=== PATIENT | male | born 1975 | race Two or more races ===

== ENCOUNTER 2019-04-09 10:10 | Emergency (ER) | payer MEDICAID ==
[~2019-04-09] VITALS: Ht 177.8 cm; Wt 104.5 kg
[2019-04-09 11:01] LABS: BASOPHILS % (AUTO) 0.9 % (0.0-2.0); EOSINOPHILS % (AUTO) 1.5 % (1.0-6.0); HEMOGLOBIN 13.6 g/dL (13.5-17.5); LYMPHOCYTES # (AUTO) 2.2 K/uL (1.0-4.8); MEAN CORPUSCULAR HEMOGLOBIN 28.1 pg (26.0-34.0); MEAN CORPUSCULAR HGB CONC 32.4 G/dL (31.0-37.0); MEAN CORPUSCULAR VOLUME 87 fL (80-100); MONOCYTES # (AUTO) 0.8 K/uL (0.1-1.0); MONOCYTES % (AUTO) 10.9 % (2.0-9.0); NEUTROPHILS # (AUTO) 4.2 K/uL (1.8-7.7); NEUTROPHILS % (AUTO) 56.7 % (40.0-70.0); PLATELET COUNT (AUTO) 180 K/uL (150-450); RED BLOOD CELL COUNT(AUTO) 4.84 MIL/uL (4.50-5.90); RED CELL DISTRIBUTION WIDTH 24.7 % (11.5-14.5)
[2019-04-09 11:12] LABS: ANION GAP 9 mmol/L (8-16); CALCIUM, TOTAL 7.9 mg/dL (8.8-10.5); CARBON DIOXIDE 28 mmol/L (22-29); CHLORIDE 106 mmol/L (98-107); CREATININE 0.82 mg/dL (0.60-1.30); GLOMERULAR FILTR. RATE CALC > 60 mL/min (>60); GLUCOSE,RANDOM 116 mg/dL (70-110); POTASSIUM 3.5 mmol/L (3.5-5.1); SODIUM SERUM 143 mmol/L (136-145); UREA NITROGEN, BLOOD 3 mg/dL (7-18)
[2019-04-09 11:18] LABS: ALANINE AMINOTRANSFERASE 48 U/L (12-78); ALBUMIN 3.2 g/dL (3.4-5.0); ALKALINE PHOSPHATASE 186 U/L (46-116); ASPARTATE AMINOTRANSFERASE 101 U/L (15-37); BILIRUBIN,TOTAL 1.3 mg/dL (0.1-1.0); LIPASE 147 U/L (73-393); TOTAL PROTEIN, SERUM 8.4 g/dL (6.4-8.2)
[2019-04-09 11:47] LABS: APPEARANCE,URINE CLEAR (CLEAR); BILIRUBIN,URINE NEGATIVE (NEGATIVE); GLUCOSE, URINE (UA) NEGATIVE (NEGATIVE); KETONES,URINE NEGATIVE (NEGATIVE); LEUKOCYTE ESTERASE ,URINE NEGATIVE (NEGATIVE); NITRATE,URINE NEGATIVE (NEGATIVE); OCCULT BLOOD,URINE NEGATIVE (NEGATIVE); PROTEIN,URINE NEGATIVE (NEGATIVE)
[2019-04-09 11:59] LABS: AMPHET/METH SCREEN,URINE NEGATIVE (NEGATIVE); BARBITURATE SCREEN, URINE NEGATIVE (NEGATIVE); BENZODIAZEPINES SCREEN,URINE NEGATIVE (NEGATIVE); CANNABINOID SCREEN,URINE POSITIVE (NEGATIVE); COCAINE SCREEN,URINE NEGATIVE (NEGATIVE); METHADONE SCREEN, URINE NEGATIVE (NEGATIVE); OPIATE SCREEN,URINE NEGATIVE (NEGATIVE); PHENCYCLIDINE SCREEN,URINE NEGATIVE (NEGATIVE)
[2019-04-09 12:26] VITALS: BP 132/83
== END 2019-04-09 12:40 | disposition home or self-care (01) ==
LOC: EMS 10:12
DX: F10.20 Alcohol dependence, uncomplicated (principal); F17.210 Nicotine dependence, cigarettes, uncomplicated; R53.81 Other malaise; K21.9 Gastro-esophageal reflux disease without esophagitis; F12.90 Cannabis use, unspecified, uncomplicated
CPT/HCPCS: 99406

== ENCOUNTER 2019-04-12 23:38 | Inpatient (IN) | payer MEDICAID ==
[~2019-04-12] VITALS: Ht 177.8 cm; Wt 100.0 kg
[2019-04-13] VITALS (7 sets, daily range): BP systolic 118–147; BP diastolic 55–80
[2019-04-13 00:20] LABS: BASOPHILS % (AUTO) 0.5 % (0.0-2.0); EOSINOPHILS % (AUTO) 1.3 % (1.0-6.0); HEMATOCRIT 39.5 % (41-53); HEMOGLOBIN 13.1 g/dL (13.5-17.5); LYMPHOCYTES % (AUTO) 27.6 % (22.0-44.0); MEAN CORPUSCULAR HEMOGLOBIN 28.6 pg (26.0-34.0); MEAN CORPUSCULAR VOLUME 87 fL (80-100); MONOCYTES # (AUTO) 1.2 K/uL (0.1-1.0); MONOCYTES % (AUTO) 10.8 % (2.0-9.0); NEUTROPHILS # (AUTO) 6.4 K/uL (1.8-7.7); NEUTROPHILS % (AUTO) 59.8 % (40.0-70.0); PLATELET COUNT (AUTO) 129 K/uL (150-450); RED BLOOD CELL COUNT(AUTO) 4.57 MIL/uL (4.50-5.90); RED CELL DISTRIBUTION WIDTH 23.1 % (11.5-14.5)
[2019-04-13 00:29] LABS: ANION GAP 9 mmol/L (8-16); CALCIUM, TOTAL 8.3 mg/dL (8.8-10.5); CARBON DIOXIDE 28 mmol/L (22-29); CHLORIDE 102 mmol/L (98-107); GLOMERULAR FILTR. RATE CALC > 60 mL/min (>60); GLUCOSE,RANDOM 133 mg/dL (70-110); POTASSIUM 3.1 mmol/L (3.5-5.1); SODIUM SERUM 139 mmol/L (136-145); UREA NITROGEN, BLOOD 3 mg/dL (7-18)
[2019-04-13 00:33] LABS: INR 1.4 (0.9-1.1); PROTHROMBIN TIME 14.4 SEC (9.4-11.6)
[2019-04-13 00:34] LABS: ALANINE AMINOTRANSFERASE 43 U/L (12-78); ALBUMIN 3.1 g/dL (3.4-5.0); ALKALINE PHOSPHATASE 241 U/L (46-116); ASPARTATE AMINOTRANSFERASE 93 U/L (15-37); BILIRUBIN,TOTAL 1.5 mg/dL (0.1-1.0); LIPASE 200 U/L (73-393); TOTAL PROTEIN, SERUM 8.3 g/dL (6.4-8.2)
[2019-04-13] MEDS ORDERED: LORazepam 2 MG/ML VIAL IVP ONE (01:15)
[2019-04-13] MEDS ORDERED: POTASSIUM CHL 10 MEQ/WATER 50 ML IV ONE (01:15)
[2019-04-13] MEDS: PANTOPRAZOLE SODIUM 80 MG in SODIUM CHLORIDE 0.9% 100 ML IV SCH ×4 (01:15→22:04)
[2019-04-13] MEDS ORDERED: MAGNESIUM SULFATE 2 GM, MVI, ADULT NO.1 WITH VIT K 10 ML, THIAMINE HCL 100 MG, FOLIC AC... IV ONE ×5 (01:15)
[2019-04-13] MEDS ORDERED: PANTOPRAZOLE SODIUM 40 MG/VIAL IVP ONE (01:15)
[2019-04-13 01:33] LABS: APPEARANCE,URINE CLEAR (CLEAR); BILIRUBIN,URINE NEGATIVE (NEGATIVE); GLUCOSE, URINE (UA) NEGATIVE (NEGATIVE); KETONES,URINE NEGATIVE (NEGATIVE); LEUKOCYTE ESTERASE ,URINE NEGATIVE (NEGATIVE); NITRATE,URINE NEGATIVE (NEGATIVE); OCCULT BLOOD,URINE NEGATIVE (NEGATIVE); PH,URINE 6.5 (5.0-8.0); PROTEIN,URINE NEGATIVE (NEGATIVE)
[2019-04-13 01:33] LABS: % IRON SATURATION 42.8 % (30-44); IRON, SERUM 164 mcg/dL (50-175); TOTAL IRON BINDING CAPACITY 383 mcg/dL (250-450)
[2019-04-13] MEDS ORDERED: ONDANSETRON HCL 4 MG/2 ML VIAL IVP PRN ×2 (01:45→13:00)
[2019-04-13] MEDS ORDERED: SODIUM CHLORIDE 0.9% 1,000 ML IV ONE (01:45)
[2019-04-13] MEDS ORDERED: ONDANSETRON HCL 4 MG/2 ML VIAL IVP ONE (01:45)
[2019-04-13] MEDS ORDERED: 0.9% SODIUM CHLORIDE 10 ML SYRINGE IVP PRN (01:45)
[2019-04-13] MEDS ORDERED: HYDROmorphone 2 MG/ML SYRINGE IVP ONE (02:00)
[2019-04-13] MEDS ORDERED: INFLUENZA VIRUS VACCINE QVS 2019-20 (3YR+)/PF 60 MCG/0.5 ML SYRINGE IM ONE (05:15)
[2019-04-13] MEDS ORDERED: PNEUMOCOCCAL VACCINE POLYVALENT 0.5 ML VIAL [PPSV23] IM ONE (05:15)
[2019-04-13 08:03] LABS: HEMATOCRIT 33.4 % (41-53); HEMOGLOBIN 11.1 g/dL (13.5-17.5)
[2019-04-13] MEDS: MORPHINE SULFATE 2 MG/ML SYRINGE IVP PRN ×3 (09:12→23:50)
[2019-04-13 11:32] LABS: HEMATOCRIT 34.7 % (41-53); HEMOGLOBIN 11.4 g/dL (13.5-17.5)
[2019-04-13] MEDS ORDERED: IPRATROPIUM BROMIDE 0.5 MG/2.5 ML NEB SOLUTION NEB PRN (13:00)
[2019-04-13] MEDS ORDERED: ACETAMINOPHEN 325 MG TABLET PO PRN (13:00)
[2019-04-13] MEDS ORDERED: ALBUTEROL SULFATE 2.5 MG/0.5 ML NEB SOLUTION NEB PRN (13:00)
[2019-04-13] MEDS ORDERED: BISACODYL 10 MG RECTAL RECTAL SUPPOSITORY PR PRN (13:00)
[2019-04-13] MEDS ORDERED: HYDROCODONE/ACETAMINOPHEN 5-325 MG TABLET PO PRN (13:00)
[2019-04-13] MEDS ORDERED: MORPHINE SULFATE 2 MG/ML SYRINGE IVP PRN (13:00)
[2019-04-13] MEDS ORDERED: MAGNESIUM HYDROXIDE SUSPENSION 30 ML UDCUP PO PRN (13:00)
[2019-04-13] MEDS ORDERED: ZOLPIDEM TARTRATE 5 MG TABLET PO PRN (13:00)
[2019-04-13] MEDS ORDERED: SODIUM CHLORIDE 0.9% 250 ML IV ONE ×2 (14:33→20:33)
[2019-04-13] MEDS: CefTRIAXone SODIUM 2 GM in DEXTROSE 5%-WATER 50 ML IV SCH (14:39)
[2019-04-13] MEDS: OCTREOTIDE ACETATE 500 MCG in DEXTROSE 5%-WATER 97.5 ML IV SCH ×2 (15:27→22:04)
[2019-04-13 18:20] LABS: HEMOGLOBIN 11.5 g/dL (13.5-17.5)
[2019-04-13 18:29] LABS: ANION GAP 11 mmol/L (8-16); CARBON DIOXIDE 24 mmol/L (22-29); CHLORIDE 101 mmol/L (98-107); CREATININE 0.71 mg/dL (0.60-1.30); GLUCOSE,RANDOM 83 mg/dL (70-110); POTASSIUM 3.8 mmol/L (3.5-5.1); SODIUM SERUM 136 mmol/L (136-145); UREA NITROGEN, BLOOD 2 mg/dL (7-18)
[2019-04-13 18:30] LABS: CALCIUM, TOTAL 7.7 mg/dL (8.8-10.5); GLOMERULAR FILTR. RATE CALC > 60 mL/min (>60)
[2019-04-13] MEDS ORDERED: MAGNESIUM SULFATE 4 GM/WATER 100 ML IV PRN (18:45)
[2019-04-13] MEDS: DOCUSATE SODIUM 100 MG CAPSULE PO SCH (21:00)
[2019-04-13] MEDS: MAGNESIUM SULFATE 2 GM/WATER 50 ML IV PRN (21:57)
[2019-04-14 05:20] VITALS: BP 144/71
[2019-04-14 06:21] LABS: BASOPHILS % (AUTO) 0.7 % (0.0-2.0); EOSINOPHILS % (AUTO) 3.4 % (1.0-6.0); HEMATOCRIT 34.1 % (41-53); HEMOGLOBIN 11.7 g/dL (13.5-17.5); LYMPHOCYTES # (AUTO) 1.3 K/uL (1.0-4.8); MEAN CORPUSCULAR HEMOGLOBIN 29.7 pg (26.0-34.0); MEAN CORPUSCULAR HGB CONC 34.4 G/dL (31.0-37.0); MEAN CORPUSCULAR VOLUME 87 fL (80-100); MONOCYTES # (AUTO) 0.7 K/uL (0.1-1.0); MONOCYTES % (AUTO) 12.6 % (2.0-9.0); NEUTROPHILS # (AUTO) 3.3 K/uL (1.8-7.7); NEUTROPHILS % (AUTO) 59.3 % (40.0-70.0); RED BLOOD CELL COUNT(AUTO) 3.94 MIL/uL (4.50-5.90); RED CELL DISTRIBUTION WIDTH 22.2 % (11.5-14.5)
[2019-04-14 06:36] LABS: ALANINE AMINOTRANSFERASE 34 U/L (12-78); ALBUMIN 2.6 g/dL (3.4-5.0); ALKALINE PHOSPHATASE 177 U/L (46-116); ANION GAP 6 mmol/L (8-16); ASPARTATE AMINOTRANSFERASE 76 U/L (15-37); BILIRUBIN,TOTAL 2.2 mg/dL (0.1-1.0); CALCIUM, TOTAL 7.8 mg/dL (8.8-10.5); CARBON DIOXIDE 28 mmol/L (22-29); CHLORIDE 102 mmol/L (98-107); CREATININE 0.84 mg/dL (0.60-1.30); GLOMERULAR FILTR. RATE CALC > 60 mL/min (>60); GLUCOSE,RANDOM 108 mg/dL (70-110); POTASSIUM 3.8 mmol/L (3.5-5.1); SODIUM SERUM 136 mmol/L (136-145); TOTAL PROTEIN, SERUM 6.8 g/dL (6.4-8.2); UREA NITROGEN, BLOOD 3 mg/dL (7-18)
[2019-04-14 06:49] LABS: PLATELET COUNT (AUTO) 100 K/uL (150-450)
[2019-04-14 07:23] VITALS: BP 136/67
[2019-04-14] MEDS: DOCUSATE SODIUM 100 MG CAPSULE PO SCH ×2 (09:00→20:43)
[2019-04-14] MEDS: OCTREOTIDE ACETATE 500 MCG in DEXTROSE 5%-WATER 97.5 ML IV SCH ×2 (10:05→20:42)
[2019-04-14] MEDS: PANTOPRAZOLE SODIUM 80 MG in SODIUM CHLORIDE 0.9% 100 ML IV SCH ×2 (10:05→20:41)
[2019-04-14] MEDS: LORazepam 2 MG/ML VIAL IVP PRN ×2 (10:06→22:22)
[2019-04-14] MEDS: MULTIVITAMINS WITH MINERALS, THERAPEUTIC TABLET PO SCH (10:45)
[2019-04-14] MEDS: MORPHINE SULFATE 2 MG/ML SYRINGE IVP PRN ×3 (10:50→20:39)
[2019-04-14 11:20] VITALS: BP 140/70
[2019-04-14] MEDS ORDERED: LIDOCAINE/PF 2% 5 ML VIAL INJ ONE (12:00)
[2019-04-14] MEDS ORDERED: PROPOFOL 1% 20 ML VIAL IVP ONE (12:00)
[2019-04-14] MEDS: CefTRIAXone SODIUM 2 GM in DEXTROSE 5%-WATER 50 ML IV SCH (15:00)
[2019-04-14] MEDS ORDERED: SODIUM CHLORIDE 0.9% 1,000 ML IV ONE (15:00)
[2019-04-14 15:06] VITALS: BP 139/92
[2019-04-14] MEDS ORDERED: SODIUM CHLORIDE 0.9% 1,000 ML ONE (15:17)
[2019-04-14 17:44] VITALS: BP 140/85
[2019-04-14] MEDS: MAGNESIUM OXIDE 400 MG TABLET PO PRN (20:42)
[2019-04-14] MEDS: LACTULOSE 20 GM/30 ML SOLUTION UDCUP PO SCH (20:43)
[2019-04-14 20:46] VITALS: BP 139/80
[2019-04-14] MEDS ORDERED: MAG HYDROX/AL HYDROX/SIMETH 30 ML SUSP UDCUP PO PRN (21:15)
[2019-04-15] MEDS: MAGNESIUM OXIDE 400 MG TABLET PO PRN ×2 (00:03→03:56)
[2019-04-15 00:18] VITALS: BP 142/82
[2019-04-15] MEDS: MORPHINE SULFATE 2 MG/ML SYRINGE IVP PRN ×4 (03:56→20:48)
[2019-04-15 05:04] VITALS: BP 139/75
[2019-04-15] MEDS: PANTOPRAZOLE SODIUM 80 MG in SODIUM CHLORIDE 0.9% 100 ML IV SCH (06:33)
[2019-04-15] MEDS: OCTREOTIDE ACETATE 500 MCG in DEXTROSE 5%-WATER 97.5 ML IV SCH ×2 (06:34→16:07)
[2019-04-15 06:44] LABS: BASOPHILS % (AUTO) 0.5 % (0.0-2.0); EOSINOPHILS % (AUTO) 2.9 % (1.0-6.0); HEMOGLOBIN 9.2 g/dL (13.5-17.5); LYMPHOCYTES % (AUTO) 17.8 % (22.0-44.0); MEAN CORPUSCULAR HEMOGLOBIN 29.3 pg (26.0-34.0); MEAN CORPUSCULAR VOLUME 89 fL (80-100); MONOCYTES # (AUTO) 0.7 K/uL (0.1-1.0); MONOCYTES % (AUTO) 12.6 % (2.0-9.0); NEUTROPHILS # (AUTO) 3.9 K/uL (1.8-7.7); NEUTROPHILS % (AUTO) 66.2 % (40.0-70.0); PLATELET COUNT (AUTO) 76 K/uL (150-450); RED BLOOD CELL COUNT(AUTO) 3.15 MIL/uL (4.50-5.90)
[2019-04-15 07:03] LABS: ALANINE AMINOTRANSFERASE 31 U/L (12-78); ALBUMIN 2.5 g/dL (3.4-5.0); ALKALINE PHOSPHATASE 145 U/L (46-116); ANION GAP 6 mmol/L (8-16); ASPARTATE AMINOTRANSFERASE 69 U/L (15-37); BILIRUBIN,TOTAL 1.9 mg/dL (0.1-1.0); CARBON DIOXIDE 29 mmol/L (22-29); CHLORIDE 102 mmol/L (98-107); CREATININE 0.92 mg/dL (0.60-1.30); GLOMERULAR FILTR. RATE CALC > 60 mL/min (>60); GLUCOSE,RANDOM 134 mg/dL (70-110); POTASSIUM 3.7 mmol/L (3.5-5.1); SODIUM SERUM 137 mmol/L (136-145); TOTAL PROTEIN, SERUM 6.4 g/dL (6.4-8.2); UREA NITROGEN, BLOOD 5 mg/dL (7-18)
[2019-04-15 07:17] VITALS: BP 114/61
[2019-04-15] MEDS: DOCUSATE SODIUM 100 MG CAPSULE PO SCH ×2 (07:41→21:00)
[2019-04-15] MEDS: LACTULOSE 20 GM/30 ML SOLUTION UDCUP PO SCH ×2 (07:41→21:00)
[2019-04-15] MEDS ORDERED: SODIUM CHLORIDE 0.9% 250 ML IV ONE (08:32)
[2019-04-15] MEDS: MAGNESIUM SULFATE 2 GM/WATER 50 ML IV PRN (08:36)
[2019-04-15] MEDS: MULTIVITAMINS WITH MINERALS, THERAPEUTIC TABLET PO SCH (08:36)
[2019-04-15 11:52] VITALS: BP 128/60
[2019-04-15] MEDS: CefTRIAXone SODIUM 2 GM in DEXTROSE 5%-WATER 50 ML IV SCH (14:27)
[2019-04-15] MEDS ORDERED: SODIUM CHLORIDE 0.9% 100 ML ONE (15:14)
[2019-04-15] MEDS ORDERED: IOVERSOL 350 MG/ML 100 ML VIAL ONE (15:14)
[2019-04-15 15:24] VITALS: BP 124/62
[2019-04-15 20:00] VITALS: BP 110/56
[2019-04-15] MEDS ORDERED: PANTOPRAZOLE SODIUM 40 MG DR TABLET PO SCH (21:00)
[2019-04-15] MEDS: LORazepam 2 MG/ML VIAL IVP PRN (21:48)
[2019-04-16 01:12] VITALS: BP 114/60
[2019-04-16] MEDS: OCTREOTIDE ACETATE 500 MCG in DEXTROSE 5%-WATER 97.5 ML IV SCH ×2 (02:24→12:00)
[2019-04-16 04:05] VITALS: BP 110/59
[2019-04-16 07:09] LABS: BASOPHILS % (AUTO) 0.5 % (0.0-2.0); HEMATOCRIT 28.4 % (41-53); HEMOGLOBIN 9.4 g/dL (13.5-17.5); LYMPHOCYTES # (AUTO) 1.3 K/uL (1.0-4.8); LYMPHOCYTES % (AUTO) 15.7 % (22.0-44.0); MEAN CORPUSCULAR HEMOGLOBIN 29.4 pg (26.0-34.0); MEAN CORPUSCULAR HGB CONC 33.2 G/dL (31.0-37.0); MEAN CORPUSCULAR VOLUME 89 fL (80-100); MONOCYTES % (AUTO) 12.8 % (2.0-9.0); NEUTROPHILS # (AUTO) 5.5 K/uL (1.8-7.7); PLATELET COUNT (AUTO) 88 K/uL (150-450); RED CELL DISTRIBUTION WIDTH 22.2 % (11.5-14.5)
[2019-04-16 07:26] LABS: ALANINE AMINOTRANSFERASE 31 U/L (12-78); ALBUMIN 2.5 g/dL (3.4-5.0); ALKALINE PHOSPHATASE 143 U/L (46-116); ANION GAP 8 mmol/L (8-16); ASPARTATE AMINOTRANSFERASE 65 U/L (15-37); BILIRUBIN,TOTAL 1.5 mg/dL (0.1-1.0); CALCIUM, TOTAL 7.6 mg/dL (8.8-10.5); CARBON DIOXIDE 26 mmol/L (22-29); CHLORIDE 104 mmol/L (98-107); CREATININE 0.97 mg/dL (0.60-1.30); GLOMERULAR FILTR. RATE CALC > 60 mL/min (>60); GLUCOSE,RANDOM 139 mg/dL (70-110); POTASSIUM 3.6 mmol/L (3.5-5.1); SODIUM SERUM 138 mmol/L (136-145); TOTAL PROTEIN, SERUM 6.5 g/dL (6.4-8.2); UREA NITROGEN, BLOOD 6 mg/dL (7-18)
[2019-04-16] MEDS: MULTIVITAMINS WITH MINERALS, THERAPEUTIC TABLET PO SCH (08:18)
[2019-04-16] MEDS: DOCUSATE SODIUM 100 MG CAPSULE PO SCH (08:23)
[2019-04-16] MEDS: LACTULOSE 20 GM/30 ML SOLUTION UDCUP PO SCH (08:23)
[2019-04-16] MEDS: MORPHINE SULFATE 2 MG/ML SYRINGE IVP PRN (08:42)
[2019-04-16] MEDS ORDERED: PANTOPRAZOLE SODIUM 40 MG DR TABLET PO SCH (09:00)
[2019-04-16] MEDS ORDERED: SODIUM CHLORIDE 0.9% 250 ML IV ONE (09:31)
[2019-04-16] MEDS: MAGNESIUM SULFATE 2 GM/WATER 50 ML IV PRN (09:32)
[2019-04-16 10:08] VITALS: BP 103/59
[2019-04-16] MEDS ORDERED: PANT40TA25 PO (11:11)
[2019-04-16] MEDS ORDERED: MULT1CAP32 PO (11:51)
[2019-04-16] MEDS ORDERED: MAGN400T25 PO (11:52)
== END 2019-04-16 13:30 | disposition home or self-care (01) | DRG 280 ==
LOC: EMS 23:41 → 5S 04-13 02:06
PROVIDERS: ADMIT Hospitalist; ATTEND Hospitalist
PROC: 0DJ08ZZ Inspection of Upper Intestinal Tract, Via Natural or Artificial Opening Endoscopic (ICD-10-PCS; 2019-04-14)
PROC: 06L38CZ Occlusion of Esophageal Vein with Extraluminal Device, Via Natural or Artificial Opening Endoscopic (ICD-10-PCS; principal; 2019-04-14 16:45)
DX: K70.30 Alcoholic cirrhosis of liver without ascites (principal); I85.01 Esophageal varices with bleeding; K76.6 Portal hypertension; D69.6 Thrombocytopenia, unspecified; E44.0 Moderate protein-calorie malnutrition; E83.42 Hypomagnesemia; D64.9 Anemia, unspecified; E87.6 Hypokalemia; F10.229 Alcohol dependence with intoxication, unspecified; Z91.19 Patient's noncompliance with other medical treatment and regimen; F12.90 Cannabis use, unspecified, uncomplicated; F41.9 Anxiety disorder, unspecified; K31.89 Other diseases of stomach and duodenum; Z68.31 Body mass index [BMI] 31.0-31.9, adult
CPT/HCPCS: 74175; 76700; 82271; 83540; 83550; 83735; 85014; 85018; 86850; 86900; 86901; 93005; 93976; 96365; 99291; C9113; G0480; J0696; J1170; J2060; J2270; J2354; J2405; J2704; J3411; J3475; J3480; J3490; J7030; J7050; J7060